=== PATIENT | male | born 2000 ===

== ENCOUNTER 2018-05-20 08:46 | Day surgery (SDC) | payer OTHER ==
[2018-05-19 12:16] VITALS: BMI 27.3
[2018-05-20] MEDS ORDERED: Propofol 10 mg/ml Inj (20 ML) ONE (09:49)
[2018-05-20] MEDS ORDERED: Midazolam 2 MG/2 ML VIAL ONE (09:49)
[2018-05-20] MEDS ORDERED: ceFAZolin IV 1 gm in Dextrose 1 GM/50 ML BAG IVPB ONE (09:58)
[2018-05-20] MEDS ORDERED: Bupivacaine HCl 0.5% PF (30 ml) Inj ONE (09:59)
[2018-05-20] MEDS ORDERED: Lidocaine Hydrochloride 10 ML INJ ONE (09:59)
[2018-05-20] MEDS ORDERED: HYDROmorphone 0.5 mg/0.5 ml ISec IVP PRN (10:30)
--- NOTE | 2018-05-20 10:56 | PCM.SURG1 ---
Surgeon's Initial Post Op Note - Surgeon's Notes Surgeon: Dr. Ashton DPM Wet Process Miller: Dr. Johanny Flores DPM PGY-2 Type of Anesthesia: IV Sedation, Local Anesthesia Administered By: Dr. Lovelace Pre-Operative Diagnosis: Right foot 2nd digit multiple verrous lesions Operative Findings: See dictation. M: 4-0 nylone. I: 15 cc of 1:1 1% lidocaine plain:0.5% Marcaine plain Post-Operative Diagnosis: Same Operation Performed: Right foot excision of verrous lesion 2nd digit Specimen/Specimens Removed: Verrucous skin lesion Estimated Blood Loss: EBL {In ML}: 1 Blood Products Given: N/A Drains Used: No Drains Post-Op Condition: Good Date of Surgery/Procedure: 05/20/18 Time of Surgery/Procedure: 10:56
[2018-05-20 12:00] VITALS: BP 121/50; PULSE 62; RESP 18; TEMP 97; O2SAT 100
--- NOTE | 2018-05-21 06:25 | OP ---
PROCEDURE DATE: 05/20/2018 PREOPERATIVE DIAGNOSIS: Right foot second digit multiple verrucous lesions. POSTOPERATIVE DIAGNOSIS: Right foot second digit multiple verrucous lesions. OPERATION PERFORMED: Right foot excision of verrucous lesions, second digit. SURGEON: Clovis Ashton DPM SENIOR DESIGN ENGINEER: Johanny Flores DPM, PGY-2 ANESTHESIOLOGIST: Shaquille Lovelace DO TYPE OF ANESTHESIA: IV sedation with local. INDICATIONS: The patient is a 17-year-old male with the above diagnosis. The patient is being treated by Dr. Ashton in his office as an outpatient basis where he has exhausted multiple forms of conservative treatments which include but are not limited to debridement and salicylic acid. The patient seeks surgical intervention at this time and now requests a surgical procedure that can be performed. All risks, benefits, and possible complications of procedure have been explained to the patient at greater length and the patient verbalized understanding of the procedure and requested to proceed with the procedure. Surgical consent was signed and placed in the chart. NPO status was confirmed prior to bring the patient to the operating room. OPERATIVE PREPARATION: The patient was brought into the operating room, and he was placed on the operating room table in supine position. No tourniquet was applied during this procedure. Once the IV sedation was achieved, the patient received a total of 15 mL of 1:1 mixture of 1% lidocaine plain and 0.5% Marcaine plain in a local V block type fashion to the patient's right second digit. Once the local anesthesia was achieved, the patient's right foot was then prepped and draped in usual sterile manner and the procedure began. PROCEDURE: Right foot excision of verrucous lesion, second digit. DESCRIPTION OF PROCEDURE: Attention was then directed to the lateral aspect of the right foot second digit where three small lesions measuring approximately 0.3 x 0.2 cm in a circular pattern were noted. An incision was planned using a marking pen. An semi-elliptical incision was carried out using #15 blade at this time and the all three lesions were excised. The incision was deepened to the level of subcutaneous tissue, and the lesion was completely excised and was passed off the operative field and was sent to Pathology. At this time, the wound bed was then curetted using a small curette. Surgical site was then irrigated with copious amount of sterile saline. At this time utilizing a 4-0 nylon, horizontal mattress type suturing technique was used to close the semi-elliptical incision site. At this time, surgical site was then dressed with bacitracin, Adaptic, 4 x 4, Kerlix, and Hung bandage. POSTOPERATIVE CONDITION: The patient tolerated the anesthesia and the procedure well and was escorted to the recovery room with vital signs stable and neurovascular status intact to the patient's right foot. The patient will remain full weightbearing to the right lower extremity using a surgical shoe. All the postoperative instructions were provided prior to taking the patient into the operating room. The patient will follow up with Dr. Ashton in his office within one week. Johanny Flores DPM Clovis Ashton DPM [facility]
== END 2018-05-20 12:47 | disposition home or self-care (01) ==
LOC: C.SDS 08:46
PROVIDERS: ATTEND Podiatrist Foot & Ankle Surgery
DX: B07.0 Plantar wart (principal)
CPT/HCPCS: 11421; 88305; J0690; J2250; J2704; J3010